=== PATIENT | male | born 1965 | race Caucasian/White ===

== ENCOUNTER 2019-10-23 10:14 | Outpatient (CLI) | payer OTHER, SELFPAY ==
--- NOTE | 2019-10-23 10:24 | XR_ITS ---
WS: [id number] Chest 2 views, 10/23/2019 Clinical Data: CHEST PAIN Comparison: None. Findings: No nodules, masses or effusions are seen. The heart is normal. The pulmonary vascularity is not increased. No pneumonia or pneumothorax is seen. XR/XR chest 2V* [id number] Impression: Negative chest.
== END 2019-10-23 10:15 | disposition home or self-care (01) ==
LOC: RADWPI 10:21
PROVIDERS: Family Provider Family Medicine; PCP Family Medicine; Visit Provider Family Medicine
DX: R07.9 Chest pain, unspecified (principal)
CPT/HCPCS: 71046

== ENCOUNTER → 2021-10-13 14:58 | Outpatient (BNVA) | payer OTHER, SELFPAY | PROVIDERS: PCP Family Medicine; Referring Provider Family Medicine; Visit Provider Orthopaedic Surgery | DX: M54.9 Dorsalgia, unspecified (principal); M51.36 Other intervertebral disc degeneration, lumbar region | CPT/HCPCS: 72110 ==

== ENCOUNTER 2022-04-21 09:16 | Outpatient (CLI) | payer OTHER, SELFPAY ==
--- NOTE | 2022-04-21 09:40 | XR_ITS ---
WS: [id number] Right knee, 3 views, 04/21/2022 Clinical Data: Knee PAIN, RIGHT Comparison: AP knees, left knee, 09/02/2015. Findings: There is minimal calcification in the medial and lateral cartilages. The patella is normal. The soft tissues are unremarkable. There are no fractures or dislocations. XR/XR knee RT 3V* [id number] Impression: Minimal calcification of the medial and lateral chondral cartilage. Kellgren-Rock Classification: grade 0 (none): definite absence of x-ray syeda nges of osteoarthritis
== END 2022-04-21 09:17 | disposition home or self-care (01) ==
PROVIDERS: PCP Family Medicine; Visit Provider Family Medicine
DX: M25.511 Pain in right shoulder (principal)
CPT/HCPCS: 73562

== ENCOUNTER 2022-07-13 06:50 | Outpatient (CLI) | payer OTHER, SELFPAY ==
--- NOTE | 2022-07-13 07:15 | MR_ITS ---
WS: [id number] MRI RIGHT KNEE NONCONTRAST TECHNIQUE: Axial PD, coronal PD fat sat, coronal PD, sagittal PD, and sagittal PD fat-sat images obta ined. CLINICAL INFORMATION: knee pain COMPARISON: Moderate tricompartmental arthritis. Chondrocalcinosis. Narrowing worse medial joint comp artment and patellofemoral articulation. Slightly hypertrophic patella. Moderate suprapatellar effusi on. Tendinopathy in the distal quadriceps tendon. Patellar tendon is intact. Prepatellar and infrapatella r soft tissue edema. ACL and PCL appear intact. Lobulation and thickening involving the PCL likely du e to previous partial tear. 8 mm ganglion cyst along the dorsal PCL. Chronic thinning of the medial a nd lateral meniscus. No acute appearing meniscal tears. Moderate chondromalacia medial greater than lateral joint compartments. Full-thickness cartilage defe ct in the medial femoral condyle measuring 6 mm. No underlying subchondral edema. Subchondral cystic change with edema in the anterior femoral condyle. Subchondral cystic change along the PCL insertion tibial plateau. Advanced chondromalacia patella grade 4. Subchondral edema in the lateral patella. Medial and lateral patellar retinaculum are intact. Normal popliteal fossa. Normal medial collateral ligament. Lateral collateral ligament appears grossly intact. Partial tear involving the popliteus origin and LCL origi ns with fluid and edema deep to the proximal LCL and popliteus proximally. Distal insertions appear i ntact. MR/MR knee RT wo con* [id number] IMPRESSION: 1. ACL and PCL appear grossly intact. Suspected prior partial tear of the PCL with thickening and lobulation. Associated ganglion cyst along the dorsal PCL. 2. Tendinopathy involving the distal quadriceps tendon at the distal insertion . 3. No acute appearing meniscal tears. Chronic thinning of the medial and later al meniscus. 4. Moderate suprapatellar effusion. 5. Grade IV chondromalacia patella worse in the lateral patella facet. 6. Partial tears involving the proximal origin of the LCL and popliteus with f luid and edema deep to the ligaments. 7. Grade III to IV chondromalacia worse in medial joint compartment with 6 mm full-thickness cartilage defect 8. Subchondral cystic change and edema involving the anterior femoral condyle and posterior tibia at the PCL insertion. Outbridge grading: grade IV: full-thickness cartilage loss with underlying bone reactive changes
== END 2022-07-13 06:51 | disposition home or self-care (01) ==
PROVIDERS: PCP Family Medicine; Visit Provider Orthopaedic Surgery
DX: M76.891 Other specified enthesopathies of right lower limb, excluding foot (principal); M67.461 Ganglion, right knee; M25.461 Effusion, right knee; S83.421A Sprain of lateral collateral ligament of right knee, initial encounter; X58.XXXA Exposure to other specified factors, initial encounter; M94.261 Chondromalacia, right knee
CPT/HCPCS: 73721

== ENCOUNTER 2022-11-09 13:46 | Outpatient (CLI) | payer OTHER, SELFPAY ==
--- NOTE | 2022-11-09 14:19 | XR_ITS ---
WS: [id number] Exam: XR foot LT 2V [id number] Date/Time of Exam: 11/09/2022 2:30 PM Reason For Exam: FOOT PAIN, LEFT No fracture or dislocation. No soft tissue foreign bodies are identified. Mild calcification in the A chilles tendon. Joint structures are relatively well maintained. Slight DJD at the first MP joint. XR/XR foot LT 2V [id number] IMPRESSION: 1. No fracture or other significant finding.
== END 2022-11-09 13:47 | disposition home or self-care (01) ==
LOC: RAD 13:50
PROVIDERS: PCP Family Medicine; Visit Provider Nurse Practitioner Family
DX: M19.072 Primary osteoarthritis, left ankle and foot (principal)
CPT/HCPCS: 73620

== ENCOUNTER 2023-02-16 14:59 | Outpatient (CLI) | payer OTHER, SELFPAY ==
--- NOTE | 2023-02-16 15:09 | MR_ITS ---
WS: [id number] MRI RIGHT SHOULDER NONCONTRAST TECHNIQUE: Sagittal T2, coronal T1, T2 and proton density imaging. Axial gradient PDE imaging. CLINICAL INFORMATION: R ROTATOR CUFF SYNDROME/ R SHOULDER PAIN COMPARISON: None. FINDINGS: Moderate degenerative arthritis AC joint with mild edema. Mild narrowing of the subacromial space. Di stal supraspinatus is intact. Normal infraspinatus. Normal teres minor. Subscapularis tendon appears intact. Advanced degenerative narrowing of the glenohumeral articulation. Subchondral cystic change o r intraosseous ganglion cysts involving the greater tuberosity. Small lobulated ganglion cysts along the spinoglenoid notch likely due to prior posterior superior la bral tear. No significant denervation atrophy of the supraspinatus or infraspinatus. Slight medial subluxation of the proximal biceps tendon with marked diffuse increased T2 signal abnor mality involving the intra-articular biceps tendon compatible with advanced tendinopathy. Small intra substance tear difficult to exclude. Biceps labral anchor appears intact. MR/MR shoulder RT wo con* [id number] IMPRESSION: 1. Moderate degenerative arthritis AC joint with mild edema and mild narrowing of the subacromial space. 2. Mild chronic thinning of the distal supraspinatus appears intact. Rotator c uff is intact. 3. Advanced degenerative narrowing glenohumeral articulation with hypertrophic spurring. 4. Visually small joint capsule can be seen with adhesive capsulitis in the ap propriate clinical setting. 5. Medial subluxation of the biceps tendon in the proximal bicipital groove wi th diffuse increased T2 signal abnormality compatible with advanced tendinopath y. Small intrasubstance tear difficult to exclude 6. Subchondral cystic change and/or intraosseous ganglion cysts involving the greater tuberosity. 7. Small lobulated ganglion cysts along the spinoglenoid notch likely due to c hronic posterior superior labral tear.
== END 2023-02-16 15:00 | disposition home or self-care (01) ==
PROVIDERS: PCP Family Medicine; Visit Provider Family Medicine
DX: M75.101 Unspecified rotator cuff tear or rupture of right shoulder, not specified as traumatic (principal); M19.011 Primary osteoarthritis, right shoulder; M67.411 Ganglion, right shoulder
CPT/HCPCS: 73221

== ENCOUNTER → 2023-02-26 10:58 | Outpatient (BNVA) | payer OTHER, SELFPAY | PROVIDERS: PCP Family Medicine; Referring Provider Family Medicine; Visit Provider Specialist | DX: M12.811 Other specific arthropathies, not elsewhere classified, right shoulder (principal) | CPT/HCPCS: 73030 ==

== ENCOUNTER → 2023-04-19 08:59 | Outpatient (BNVA) | payer OTHER, SELFPAY | PROVIDERS: PCP Family Medicine; Visit Provider Podiatrist Foot & Ankle Surgery | DX: M76.62 Achilles tendinitis, left leg; M76.61 Achilles tendinitis, right leg; M72.2 Plantar fascial fibromatosis; M21.6X1 Other acquired deformities of right foot; M21.6X2 Other acquired deformities of left foot | CPT/HCPCS: 73630 ==

== ENCOUNTER 2023-06-12 08:55 | Outpatient (CLI) | payer OTHER, SELFPAY ==
--- NOTE | 2023-06-12 09:00 | MR_ITS ---
WS: [id number] EXAMINATION: MR ankle LT wo con* [id number] ORDER DATE: 06/12/2023 8:57 AM COMPARISON: None. HISTORY: Rule out stress fracture CONTRAST: None. TECHNIQUE: Axial proton density fat sat, axial T1, sagittal proton density, sagittal STIR, coronal T2 fat sat, and coronal T1 sequences performed. FINDINGS: Achilles insertion enthesophyte. Tiny minuscule plantar calcaneal spur. Normal medial and lateral mal leolus. Normal talar dome. Small osteochondral defect involving the medial talar dome. Otherwise norm al bone marrow signal in the talus. Normal anterior calcaneus. Normal plantar fascia. Some amount of edema in the dorsal calcaneus with a small amount of signal abnormality involving the distal Achilles at the insertion consistent with a tiny partial tear along the lateral insertion. Tr favio fluid in the retrocalcaneal bursa. Achilles otherwise appears intact. Normal peroneal longus and brevis. Normal extensor and flexor compartment tendons. ATF appears intact . Normal navicular. Base of the fifth metatarsal appears normal. Normal cuboid. IMPRESSION: 1. Tiny tear at the distal lateral Achilles insertion with a small amount of fluid and edema. Trace fluid in the retrocalcaneal bursa. 2. Small amount of edema in the adjacent dorsal calcaneus likely reactive. 3. Small osteochondral defect involving the medial talar dome. No significant surrounding edema. 4. Normal ankle mortise. 5. Normal peroneal tendon sheath. 6. Normal extensor and flexor compartment tendons.
== END 2023-06-12 08:56 | disposition home or self-care (01) ==
PROVIDERS: PCP Family Medicine; Visit Provider Podiatrist Foot & Ankle Surgery
DX: S86.012A Strain of left Achilles tendon, initial encounter (principal); X58.XXXA Exposure to other specified factors, initial encounter; M84.372A Stress fracture, left ankle, initial encounter for fracture; M21.6X2 Other acquired deformities of left foot
CPT/HCPCS: 73721

== ENCOUNTER → 2023-08-21 13:44 | Outpatient (BNVA) | payer OTHER, SELFPAY | PROVIDERS: PCP Family Medicine; Visit Provider Physician Assistant | DX: M19.012 Primary osteoarthritis, left shoulder; M75.42 Impingement syndrome of left shoulder | CPT/HCPCS: 73030 ==

== ENCOUNTER → 2024-02-12 13:32 | Outpatient (BNVA) | payer OTHER, SELFPAY | PROVIDERS: PCP Family Medicine; Visit Provider Student in an Organized Health Care Education/Training Program | DX: M19.011 Primary osteoarthritis, right shoulder; S92.911A Unspecified fracture of right toe(s), initial encounter for closed fracture; X58.XXXA Exposure to other specified factors, initial encounter | CPT/HCPCS: 73630 ==

== ENCOUNTER 2024-02-12 16:19 | Outpatient (CLI) | payer OTHER, SELFPAY | END 2024-02-12 16:20 | disposition home or self-care (01) | LOC: SPT 16:20 | PROVIDERS: PCP Family Medicine; Visit Provider Student in an Organized Health Care Education/Training Program | DX: Z46.89 Encounter for fitting and adjustment of other specified devices (principal); S62.354D Nondisplaced fracture of shaft of fourth metacarpal bone, right hand, subsequent encounter for fracture with routine healing; X58.XXXD Exposure to other specified factors, subsequent encounter | CPT/HCPCS: L3031 ==

== ENCOUNTER → 2025-09-02 08:15 | Outpatient (BNVA) | payer OTHER, SELFPAY | PROVIDERS: PCP Family Medicine; Visit Provider Student in an Organized Health Care Education/Training Program | DX: M65.331 Trigger finger, right middle finger (principal); M65.332 Trigger finger, left middle finger | CPT/HCPCS: 73130 ==

== ENCOUNTER 2025-09-15 05:44 | Day surgery (SDC) | payer OTHER, SELFPAY ==
[2025-09-15] VITALS (7 sets, daily range): BP systolic 120–174; BP diastolic 65–96; PULSE 65–78; RESP 16–18; TEMP 36.2–36.6; O2SAT 94–97; BMI 35.7
[2025-09-15] MEDS: acetaminophen 1,000 MG/100 ML PIGGYBACK 400 MG IV (06:23)
--- NOTE | 2025-09-15 06:53 | ANES.PREANE2 ---
Pre-Anesthetic Assessment Height/Weight: Height 1.73 m Weight 106.594 kg Temp Pulse Resp BP Pulse Ox O2 Del Method 97.4 F L 72 18 133/86 96 Room Air 09/15/25 06:09 09/15/25 06:09 09/15/25 06:09 09/15/25 06:09 09/15/25 06:09 09/15/25 06:22 Operation Date: 09/15/25 07:00 Proposed Procedures p Trigger Finger Release - Right Middle Finger(Right) - Herminio Zhong DO Familial anesthetic complications: Had high number of lipomas removed from upper extremity, but because of surgical positioning and presumably length of procedure, he later had to have his shoulder replaced Was Beta Adrian taken within 24 hours: N/A Was Clonidine taken within 24 hours: N/A Last intake: Intake Last Liquid Date 09/14/25 Last Liquid Time 22:00 Last Solid Date 09/14/25 Last Solid Time 22:00 Social No alcohol and No tobacco Exam alert, oriented x 3, clear to auscultation bilaterally and regular rate & rhythm Airway Mallampati: Class IV Comments: Comments: large neck Neuropsych congential spondylolisthesis - has R lower extremity numbness Anesthetic Plan ASA status: 3 Anesthesia: MAC Risk of > 500 ml blood loss (7ml/kg in children): No Medications/Allergies Home Medications ?Medication ?Instructions ?Recorded ?Confirmed ?Last Taken ?Type hydrocodone 5 mg-acetaminophen 325 1 tab PO TID PRN Pain 10/13/21 09/15/25 Unknown History mg tablet cyclobenzaprine 10 mg tablet 10 mg PO TID 12/20/23 09/15/25 09/14/25 History diclofenac sodium 1 % topical gel 2 g topical QID #100 grams 12/20/23 09/15/25 Unknown Rx (Voltaren Arthritis Pain) carbon fiber shoe insert, right #1 ea 02/12/24 09/02/25 Unknown Rx foot Allergies Allergy/AdvReac Type Severity Reaction Status Date / Time No Known Allergies Allergy Verified 09/15/25 06:04 Current Medications Generic Name Dose Route Start Last Admin Trade Name Freq PRN Reason Stop Dose Admin Sodium Chloride 1,000 mls @ 30 mls/hr 09/15/25 06:00 09/15/25 06:19 Sodium Chloride 0.9% IV 09/16/25 05:59 30 mls/hr .Q24H FLORI Administration PFSH Anesthesia Medical History (Updated 09/06/25 @ 22:25 by Herminio Zhong DO) Anxiety disorder Hypertension Spina bifida Surgical History H/O knee surgery Hx of colonoscopy 4 yrs ago Hx of tonsillectomy History of surgery on arm tumors removed from right arm Social History Smoking and tobacco/nicotine status: never used tobacco/nicotine Alcohol intake: never
--- NOTE | 2025-09-15 06:57 | W.PM.OPSUD ---
Surgery/Procedure H&P Update DATE OF PROCEDURE: September 15, 2025 DATE H&P PERFORMED: 09/02/25 H&P UPDATE INFORMATION: I have reviewed H&P completed within last 30 days, I have examined patient prior to procedure and No changes to prior documentation CHANGES TO PREVIOUS DOCUMENTATION: Please refer to anesthesia preoperative valuation for heart and lung findings PREOP DIAGNOSIS: Right middle finger trigger PRIMARY INDICATION FOR PROCEDURE: Right middle finger trigger PLANNED PROCEDURE: Operation Date: 09/15/25 07:00 Proposed Procedures p Trigger Finger Release - Right Middle Finger(Right) - Herminio Zhong DO
[2025-09-15] MEDS: ceFAZolin 2,000 MG in sodium chloride 0.9% (plus) 50 ML 100 MG IV (06:58)
[2025-09-15] MEDS: ROPivacaine 0.5% SDV 30 mL 25 MG INJECTION (07:30)
--- NOTE | 2025-09-15 07:38 | W.PM.BPON ---
Date of Procedure: 09/15/2025 Surgeon: Herminio Zhong DO Operations Developer(s): None Procedure(s) performed: Right middle finger trigger release Findings of the procedure(s): Underwent procedure as planned without issues or complications taken recovery stable condition. Estimated blood loss: 2 mL Specimen(s) removed: None Post-operative diagnosis: Right middle finger trigger
--- NOTE | 2025-09-15 07:39 | PM.OP ---
Operative Report Date of procedure: September 15, 2025 Surgeon: Herminio Zhong DO Procedure: Preop Diagnosis Right middle finger trigger Post-op diagnosis: Same Procedure done: Right?middle?finger?trigger?release Surgeon: Herminio Zhong DO Estimated blood loss: 2 cc Tourniquet time 8 mins Anesthesia: MAC/local Fluids: 600mL Complications: None Condition: stable Disposition: same day Brief History: Patient's been seen and worked up in the outpatient setting and findings consistent with preoperative diagnosis of right?middle?finger?trigger.? He is failed conservative treatment.? Continues to have mechanical locking and catching.? Severe pain as well.? We talked about treatment options nonoperative versus operative intervention.? ?Patient understands the risk benefits complication alternatives of surgical nonsurgical treatment options.? Understanding his risks with surgery he elects proceed with surgical intervention.? Consent obtained in the preoperative holding area.? Here today to proceed with surgical intervention.? All questions answered. Procedure: Patient was seen and evaluated in the preoperative holding area.? Consent was reviewed and signed with patient.? Seen evaluated by Anesthesia Department.? Once cleared for surgery was brought back to the operative suite.? Placed in supine position on the OR table all bony prominences well-padded patient properly secured to the bed.? Patient's right arm was then placed to the armboard.? A nonsterile tourniquet applied to the right upper arm.? Patient's right upper extremity was then prepped and draped in standard orthopedic fashion.? Final timeout performed.? Patient received appropriate preoperative antibiotics. Esmarch tourniquet was used exsanguinate the right upper extremity tourniquet insufflated to 250 mmHg. Under sterile aseptic technique local digital block was performed to the right?middle?finger.? Once appropriately anesthetized a standard oblique incision was made centering over the A1 keith following patient's flexor crease.? Sharp scalpel incision was made only through skin and then switched to Littler dissection scissors and spread longitudinally directly over the flexor tendon sheath.? I then mobilized both radially and ulnarly and Kasdan retractors were used and placed by my sales assistant entertainment and media to protect neurovascular bundle.? Next I visualized the A1 keith and this was incised with a scalpel.? I then switched to dissection scissors and released the A1 keith both proximally as well as distally to its entirety.? Significant tendon sheath fluid was noted consistent with inflammation.? flexor tendons had no tear.? At this point I utilized a rag nail and pulled the tendons FDS and FDP out of the incision and no?triggering was noted.? I then had anesthesia wake up the patient and patient was able to actively flex and extend with no?triggering.? This point thorough irrigation was performed.? Tourniquet deflated hemostasis satisfactory with bipolar.? I then subsequently closed the incision with interrupted nylon suture.? Xeroform 4 x 4's, Kerlix and an Aman wrap was applied for a bulky soft dressing.? Patient was then subsequently awakened from anesthesia and taken to PACU in stable condition tolerated procedure without issues. Disposition: Patient taken back in stable condition recovering well.? Patient will receive appropriate discharge instruction as well as pain medication postoperatively.? Patient to follow-up with ortho in the office in 2 weeks.? Patient understands that any questions or concerns and contact the office.? All questions answered.
--- NOTE | 2025-09-15 08:30 | ANE.PACU2 ---
Inpatient post-anesthesia follow up: Airway intact: Yes Vital signs: Temperature 97.5 F Pulse Rate 65 Respiratory Rate 18 Blood Pressure 174/96 Pulse Oximetry 96 Oxygen Delivery Me thod Room Air Oxygen Flow Rate Fraction of Inspir ed Oxygen Hydration adequate: Yes Nausea and vomiting: No Pain level: 1 Mental status: Baseline
== END 2025-09-15 08:30 | disposition home or self-care (01) ==
PROVIDERS: PCP Family Medicine; Visit Provider Student in an Organized Health Care Education/Training Program
PROC: (CPT 26055; principal; 2025-09-15 07:00)
DX: M65.331 Trigger finger, right middle finger (principal); Z79.891 Long term (current) use of opiate analgesic; I10 Essential (primary) hypertension
CPT/HCPCS: 26055; J0131; J0690; J1885; J2704; J2795; J3010; J7030; J9999